=== PATIENT | male | born 2000 | race Caucasian/White ===

== ENCOUNTER 2024-05-22 10:51 | Emergency (ER) | payer OTHER, SELFPAY ==
--- NOTE | ~2024-05-22 | XR_ITS ---
EXAMINATION: XR chest 2V DATE: 05/22/2024 11:27 INDICATION: Cough and shortness of breath and fever. TECHNIQUE: Frontal and lateral views of the chest were obtained. COMPARISON: None. FINDINGS: There are airspace opacities in right middle lobe, consistent with pneumonia. No pleural ef fusion or pneumothorax. The heart size is normal. IMPRESSION: 1. Right middle lobe pneumonia. Reviewed, dictated and finalized at location A.
--- NOTE | 2024-05-22 11:18 | ED.URI ---
HPI - URI/Sore Throat General Chief Complaint: Upper Respiratory Infection Stated Complaint: Fever/Cough Time Seen by Provider: 05/22/24 11:10 Source: patient Mode of arrival: ambulatory Limitations: no limitations History of Present Illness HPI Narrative: Fernando is a 24-year-old male patient presenting to the clinic today with complaints of fever, cough, and mild shortness of breath. He reports symptoms started with a fever on . He reports the cough is nonproductive. States he developed a cough yesterday with some mild shortness of breath. No known exposure to anyone with COVID flu or strep. He denies a sore throat or any other URI symptoms. He is currently afebrile in the clinic. MD elicited complaint: fever and cough Related Data Allergies Allergy/AdvReac Type Severity Reaction Status Date / Time No Known Allergies Allergy Verified 05/22/24 11:12 Review of Systems Review of Systems: Pertinent positives per HPI. Patient denies any rash, headache, visual changes, dizziness, chest pain, palpitations, nausea, vomiting, diarrhea, constipation, abdominal pain, or any urinary issues. PMFSH Comments At the time of my signature, I reviewed and agree with the nursing past medical, surgical, social, and family history. There is no relevant family history pertinent to the patient complaint. Exam Narrative: General: Well-developed, well nourished, in no apparent distress Head: Normocephalic, atraumatic Eyes: Pupils equally round and reactive to light bilaterally, EOM intact, sclera and conjunctive clear, no discharge, lids normal Ears: TMs intact and clear, ear canals ceruminous, no drainage, grossly hearing normal. Nose: Nares patent, no discharge, no inflammation, no sinus tenderness. Mouth: Oral pharynx without lesions or masses, good dentition, MMM. Neck: Supple, trachea midline, no enlargement of anterior or posterior cervical nodes, no thyroid masses or goiter palpable. Cardio: Regular rate and rhythm, s1 and s2 normal, no murmur appreciated. Resp: Faint crackles heard over the right middle lobe, no rhonchi, wheezing or rubs Course Course Emergency Course: Portions of this record may have been created with voice recognition software. Level of Care: Express Care Visit Vital Signs Vital signs: Vital signs reviewed MDM - URI/Sore Throat MDM Narrative Medical decision making narrative: At the time of visit patient is resting comfortably on the exam table. Patient appears to be nontoxic. Labs: COVID and influenza testing was negative Diagnostics: Chest x-ray was performed and shows right middle lobe pneumonia Plan: Patient has right lower lobe pneumonia. Prescription for albuterol inhaler, azithromycin, and Augmentin was sent to the pharmacy. Will also send home a incentive spirometer. Supportive measures were discussed with the patient and they voiced understanding discharge instructions and agrees to treatment plan. Return precautions reviewed Differential Diagnosis Differential diagnosis: Likely upper respiratory infection, otitis media, sinusitis, viral infection, bronchitis, influenza, pharyngitis and other (COVID) Imaging Data Radiologist's impression: ITS Impressions Chest X-Ray 05/22/24 11:38 IMPRESSION: 1. Right middle lobe pneumonia. Discharge Plan Discharge Clinical Impression: Pneumonia Qualifiers: Pneumonia type: due to unspecified organism Laterality: right Lung location: middle lobe of lung Qualified Code(s): J18.9 - Pneumonia, unspecified organism Patient Disposition: Home, Self-Care Condition: Stable Instructions: Antibiotic Form, How to Use an Incentive Spirometer (ED), Pneumonia (ED) Additional Instructions: Take prescription medications only as prescribed-albuterol inhaler, azithromycin, and Augmentin Increase fluids and stay well hydrated Use incentive spirometer every 2 hours while awake Tylenol/motrin for pain/fever Go
[2024-05-22 11:25] LABS: EDINFLUASCREEN Negative; EDINFLUBSCREEN Negative
[2024-05-22 11:30] VITALS: BP 103/87; PULSE 114; RESP 16; TEMP 37.1; O2SAT 97
== END 2024-05-22 11:55 | disposition home or self-care (01) ==
PROVIDERS: Emergency Provider Nurse Practitioner Family
DX: J18.1 Lobar pneumonia, unspecified organism (principal); Z20.822 Contact with and (suspected) exposure to COVID-19
CPT/HCPCS: 71046; 87426; 87804; 99203; G0463